=== PATIENT | female | born 2000 | race Caucasian/White ===

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

== ENCOUNTER 2020-03-28 22:26 | Emergency (ER) | payer OTHER ==
[2020-03-28 22:40] VITALS: BP 129/85; PULSE 91; RESP 16; TEMP 98.5
--- NOTE | 2020-03-28 23:04 | ED ---
ENT HPI - General Chief complaint: ENT Stated complaint: Sore throat Time Seen by Provider: 03/28/20 22:39 Source: patient Mode of arrival: ambulatory Limitations: no limitations - History of Present Illness Initial comments: Patient is a 19-year-old female presenting to the emergency Department with complaints of a sore throat that she noticed this morning. She states that feels more irritated than painful. She denies any fever or chills, no ear pain no headaches, no nausea or vomiting. No cough, no chest pain or shortness of breath. Patient states it feels like "there are chunks coming off the back my tongue." She denies being on any medications, no pertinent past medical history, she has no further complaints at this time. Upon arrival to the ER, her vital signs stable. - Related Data Previous Rx's Medication Instructions Recorded Nystatin 100,000 Unit/ml Susp 5 ml PO QID #150 ml 03/28/20 [Mycostatin Oral Susp] Allergies Allergy/AdvReac Type Severity Reaction Status Date / Time No Known Allergies Allergy Verified 03/28/20 22:37 Review of Systems ROS Statement: Those systems with pertinent positive or pertinent negative responses have been documented in the HPI. ROS Other: All systems not noted in ROS Statement are negative. Past Medical History Past Medical History: No Reported History Additional Past Medical History / Comment(s): anemia History of Any Multi-Drug Resistant Organisms: None Reported Past Surgical History: No Surgical Hx Reported Additional Past Surgical History / Comment(s): D&C Past Psychological History: Anxiety Smoking Status: Current every day smoker Past Alcohol Use History: None Reported Past Drug Use History: Marijuana - Past Family History Mother Family Medical History: No Reported History General Exam - General Exam Comments Initial Comments: GENERAL: Patient is well-developed and well-nourished. Patient is nontoxic and in no acute distress. HEAD: Atraumatic, normocephalic. EYES: Pupils equal round and reactive to light, extraocular movements intact, sclera anicteric, conjunctiva are normal. Eyelids were unremarkable. ENT: TMs normal, nares patent. Moist mucous membranes. Patient has white patches on her tongue as well as her oropharynx, soft palate and uvula. It is some mild erythema present, no tonsillar enlargement. Consistent with thrush. NECK: Normal range of motion, supple without lymphadenopathy or JVD. LUNGS: Unlabored respirations. Breath sounds clear to auscultation bilaterally and equal. No wheezes rales or rhonchi. HEART: Regular rate and rhythm without murmurs, rubs or gallops. ABDOMEN: Soft, nontender, normoactive bowel sounds. No guarding, no rebound. No masses appreciated. : Deferred MUSCULOSKELETAL: Normal extremities with adequate strength and normal range of motion, no pitting or edema. No clubbing or cyanosis. NEUROLOGICAL: Patient is alert and oriented x 3. Motor and sensory are also intact. Cranial nerves II through XII grossly intact. Symmetrical smile. Normal speech, normal gait. PSYCH: Normal mood, normal affect. SKIN: Warm, Dry, normal turgor, no rashes or lesions noted. Limitations: no limitations Course Vital Signs 03/28/20 22:37 Temperature 98.5 F Pulse Rate 91 Respiratory 16 Rate Blood Pressure 129/85 O2 Sat by Pulse 97 Oximetry Medical Decision Making - Medical Decision Making Patient is a 19-year-old female presenting with an irritated sore throat she noticed this morning. On exam she does have some white patches in the back of her tongue swells her oropharynx, soft palate, consistent with thrush. Rapid strep is negative. No fevers. Patient will be started on nystatin oral solution, she can also follow up with her PCP if symptoms persist. She is in agreement with this plan of care. She is stable for discharge. - Lab Data Lab Results 03/28/20 Range/Units 22:47 Group A Strep Rapid Negative (Negative) Disposition Clinical Impression: Oral thrush Disposition: HOME SELF-CARE Condition: Stable Instructions (If sedation given, give patient instructions): Oral Candidiasis (ED) Additional Instructions: Please return to the Emergency Department if symptoms worsen or any other concerns. Use medication as prescribed, use for 48 hours after you no longer see patches. Follow up with her PCP. Prescriptions: Nystatin 100,000 Unit/ml Susp [Mycostatin Oral Susp] 5 ml PO QID #150 ml Is patient prescribed a controlled substance at d/c from ED?: No Referrals: Azalea Hubbard MD [Primary Care Provider] - 1-2 days
== END 2020-03-28 23:26 | disposition home or self-care (01) ==
LOC: EC 22:26
DX: B37.0 Candidal stomatitis (principal); F17.200 Nicotine dependence, unspecified, uncomplicated
CPT/HCPCS: 87081; 87430; 99283

== ENCOUNTER 2020-08-01 13:38 | Emergency (ER) | payer OTHER ==
[2020-08-01 13:44] VITALS: BP 110/61; PULSE 76; RESP 18; TEMP 97.8
[2020-08-01] MEDS ORDERED: SODIUM CHLORIDE 0.9% 1,000 ML IV STA (14:11)
[2020-08-01] MEDS ORDERED: ONDANSETRON 4 MG/2 ML VIAL IVP STA (14:11)
--- NOTE | 2020-08-01 14:16 | ED ---
Nausea/Vomiting/Diarrhea HPI - General Chief complaint: Nausea/Vomiting/Diarrhea Stated complaint: Dehydrated/13 weeks preg Time Seen by Provider: 08/01/20 14:02 Source: patient, RN notes reviewed Mode of arrival: ambulatory Limitations: no limitations - History of Present Illness Initial comments: Well-appearing, 19-year-old female presents with her significant other to the emergency room, alert and oriented 4, with complaints of vomiting throughout this . Patient states she is 13 weeks , was seen Dr. Ross was transferred to [facility]. Patient states seen her doctor last week and has been put on Zofran and Reglan but that is not working. Patient states she has vomited 3 times today and once was for me the other 2 times were yellow, and now she is having dry heaves. Patient states she only urinated twice today. Patient states has history of anemia, a D&C in 2019. Only medications she takes is vitamins. Patient states she just wants to make sure everything is okay with the baby. Patient denies abdominal pain or vaginal bleeding. MD complaint: nausea -: week(s) Description of Vomiting: bilious, other (foamy) Associated Abdominal Pain: No Severity scale (1-10): 0 Consistency: intermittent Improves with: none Worsens with: eating - Related Data Previous Rx's Medication Instructions Recorded Nystatin 100,000 Unit/ml Susp 5 ml PO QID #150 ml 03/28/20 [Mycostatin Oral Susp] Allergies Allergy/AdvReac Type Severity Reaction Status Date / Time No Known Allergies Allergy Verified 08/01/20 13:44 Review of Systems ROS Statement: Those systems with pertinent positive or pertinent negative responses have been documented in the HPI. ROS Other: All systems not noted in ROS Statement are negative. Past Medical History Past Medical History: No Reported History Additional Past Medical History / Comment(s): anemia History of Any Multi-Drug Resistant Organisms: None Reported Past Surgical History: No Surgical Hx Reported Additional Past Surgical History / Comment(s): D&C- dec 2019 Past Psychological History: Anxiety Smoking Status: Former smoker Past Alcohol Use History: None Reported Past Drug Use History: None Reported - Past Family History Mother Family Medical History: No Reported History General Exam Limitations: no limitations General appearance: alert, in no apparent distress Head exam: Present: atraumatic, normocephalic, normal inspection Eye exam: Present: normal appearance (glasses), PERRL, EOMI. Absent: scleral icterus, conjunctival injection, periorbital swelling ENT exam: Present: normal exam, normal oropharynx, mucous membranes moist Neck exam: Present: normal inspection, full ROM. Absent: tenderness, meningismus, lymphadenopathy Respiratory exam: Present: normal lung sounds bilaterally. Absent: respiratory distress, wheezes, rales, rhonchi, stridor, decreased breath sounds Cardiovascular Exam: Present: regular rate, normal rhythm, normal heart sounds. Absent: systolic murmur, diastolic murmur, rubs, gallop, clicks GI/Abdominal exam: Present: soft, normal bowel sounds. Absent: distended, tenderness, guarding, rebound, rigid Extremities exam: Present: normal inspection, full ROM, normal capillary refill. Absent: tenderness, pedal edema, joint swelling, calf tenderness Back exam: Present: normal inspection, full ROM. Absent: tenderness, CVA tenderness (R), CVA tenderness (L) Neurological exam: Present: alert, oriented X3, CN II-XII intact Psychiatric exam: Present: normal affect, normal mood Skin exam: Present: warm, dry, intact, normal color. Absent: rash, cyanosis, diaphoretic, petechiae, pallor, mottled Course Vital Signs 08/01/20 13:41 Temperature 97.8 F Pulse Rate 76 Respiratory 18 Rate Blood Pressure 110/61 O2 Sat by Pulse 98 Oximetry Medical Decision Making - Medical Decision Making Patient rehydrated with 1 L of normal saline, no vomiting in the emergency room. heart tones obtained by RN. Patient directed to follow up with her MAMMALOGIST as scheduled states has Zofran at home for nausea and vomiting. Case discussed with Dr. Dudley. Patient denies any vaginal bleeding. Abdomen is soft and nontender. Hemoglobin and hematocrit is 13 and 38 respectively. Other labs are within normal limits. - Lab Data Result diagrams: 08/01/20 14:20 08/01/20 14:20 Lab Results 08/01/20 08/01/20 Range/Units 14:20 14:20 WBC 14.6 H (4.0-11.0) k/uL RBC 4.36 (3.80-5.40) m/uL Hgb 13.0 (11.4-16.0) gm/dL Hct 38.2 (34.0-46.0) % MCV 87.6 (80.0-100.0) fL MCH 29.8 (25.0-35.0) pg MCHC 34.0 (31.0-37.0) g/dL RDW 14.8 (11.5-15.5) % Plt Count 309 (150-450) k/uL MPV 7.9 Neutrophils % 84 % Lymphocytes % 12 % Monocytes % 3 % Eosinophils % 1 % Basophils % 0 % Neutrophils # 12.3 H (1.3-7.7) k/uL Lymphocytes # 1.7 (1.0-4.8) k/uL Monocytes # 0.4 (0-1.0) k/uL Eosinophils # 0.1 (0-0.7) k/uL Basophils # 0.0 (0-0.2) k/uL Sodium 137 (137-145) mmol/L Potassium 4.1 (3.5-5.1) mmol/L Chloride 108 H (98-107) mmol/L Carbon Dioxide 19 L (22-30) mmol/L Anion Gap 10 mmol/L BUN 5 L (7-17) mg/dL Creatinine 0.60 (0.52-1.04) mg/dL Est GFR (CKD-EPI)AfAm >90 (>60 ml/min/1.73 sqM) Est GFR (CKD-EPI)NonAf >90 (>60 ml/min/1.73 sqM) Glucose 88 (74-99) mg/dL Calcium 9.2 (8.4-10.2) mg/dL Total Bilirubin 0.6 (0.2-1.3) mg/dL AST 19 (14-36) U/L ALT 10 (4-34) U/L Alkaline Phosphatase 55 (38-126) U/L Total Protein 6.8 (6.3-8.2) g/dL Albumin 3.8 (3.5-5.0) g/dL Disposition Clinical Impression: Hyperemesis gravidarum Disposition: HOME SELF-CARE Condition: Good Instructions (If sedation given, give patient instructions): Hyperemesis Gravidarum (ED) Additional Instructions: Keep your scheduled appointment with the [facility]AMMALOGIST. Return if any vaginal bleeding or inability keep fluids down. Take Zofran as prescribed previously for nausea and vomiting. Is patient prescribed a controlled substance at d/c from ED?: No Referrals: Azalea Hubbard MD [Primary Care Provider] - 1-2 days Time of Disposition: 15:43
[2020-08-01 14:31] LABS: Basophils % (A) 0 %; Eosinophils # (A) 0.1 k/uL (0-0.7); Eosinophils % (A) 1 %; HCT 38.2 % (34.0-46.0); Lymphocytes # (A) 1.7 k/uL (1.0-4.8); Lymphocytes % (A) 12 %; MCH 29.8 pg (25.0-35.0); MCV 87.6 fL (80.0-100.0); Mean Platelet Volume 7.9; Monocytes # (A) 0.4 k/uL (0-1.0); Monocytes % (A) 3 %; Neutrophils # (A) 12.3 k/uL (1.3-7.7); Neutrophils % (A) 84 %; Platelet Count 309 k/uL (150-450); RBC 4.36 m/uL (3.80-5.40); RDW 14.8 % (11.5-15.5); WBC 14.6 k/uL (4.0-11.0)
[2020-08-01 14:40] LABS: ALT 10 U/L (4-34); AST 19 U/L (14-36); African American GFR (CKD) >90 (>60 ml/min/1.73 sqM); Albumin 3.8 g/dL (3.5-5.0); Alkaline Phosphatase 55 U/L (38-126); Anion Gap 10 mmol/L; Blood Urea Nitrogen 5 mg/dL (7-17); Calcium 9.2 mg/dL (8.4-10.2); Carbon Dioxide 19 mmol/L (22-30); Chloride 108 mmol/L (98-107); Glucose 88 mg/dL (74-99); Non-African American GFR(CKD) >90 (>60 ml/min/1.73 sqM); Potassium 4.1 mmol/L (3.5-5.1); Sodium 137 mmol/L (137-145); Total Bilirubin 0.6 mg/dL (0.2-1.3); Total Protein 6.8 g/dL (6.3-8.2)
== END 2020-08-01 15:45 | disposition home or self-care (01) ==
LOC: EC 13:38
DX: O21.0 Mild hyperemesis gravidarum (principal); Z87.891 Personal history of nicotine dependence; Z3A.13 13 weeks gestation of pregnancy
CPT/HCPCS: 36415; 80053; 85025; 99284; 96374; J2405

== ENCOUNTER → 2020-09-23 | Outpatient (CLI) | payer OTHER ==
--- NOTE | 2020-09-23 15:25 | US ---
EXAMINATION TYPE: US OB anatomy transabd DATE OF EXAM: 09/23/2020 COMPARISON: NONE HISTORY: O36.62XO Large for dates TECHNIQUE: Transpelvic ultrasound was performed. EXAM MEASUREMENTS: GESTATIONAL AGE / DATING Physician Established: (20 weeks/3 days) EDC: 02/07/2021 Dates by LMP: Unknown Dates by First Scan: This is 1st scan here Dates by Current Scan for: (20 weeks/0 days) EDC: 02/10/2021 SURVEY IUP: Single PLACENTA: Posterior PREVIA: No previa ROSEANNE: 11.7 cm Normal CERVICAL LENGTH (transabdominal: norm > 3.0cm): 4.1 cm BIOMETRY PRESENTATION: Vertex LIE: Longitudinal BPD: 4.6 cm 20 weeks / 0 days HC: 16.6 cm 19 weeks / 2 days AC: 14.6 cm 20 weeks / 0 days FL: 3.4 cm 20 weeks / 5 days ESTIMATED WEIGHT IN GRAMS: 333 grams ESTIMATED WEIGHT IN LBS/OZ: 0 lbs. 12 oz. WEIGHT PERCENTAGE BASED ON ESTABLISHED DATE: 29 % HC/AC: 1.13 Normal FL/AC: 23% Normal HEART RATE: 147 bpm RHYTHM: Normal ANATOMY SEEN (within normal limits): * Lateral Vent (< 1 cm) 0.7 cm * Cisterna Magna (< 1.1 cm) 0.5 cm * Nuchal Fold (< 0.6 cm) 0.2 cm * Cerebellum (varies with age) 1.9 cm Choroid Plexus (bilateral) Midline Falx Cavus Septi Pellucidi Four Chamber Heart Outflow tracts: LVOT/RVOT Stomach Situs Nose / Lips Diaphragm Kidneys (bilateral) Bladder Cord Insert Longitudinal Spine Transverse Spine Arms (bilateral) Legs (bilateral) NOT SEEN: Three Vessel Cord-too much artifact on color Viable single IUP measuring 20 weeks 0 days with a heart rate of 147bpm and an estimated delivery alexandre e of 02/10/2021 IMPRESSION: Single live intrauterine measuring 20 weeks and 0 days gestation by sonographic criteria. 3 vessel cord not definitively seen.
== END | disposition home or self-care (01) ==
LOC: RADUSWWP 13:51
PROVIDERS: ATTEND Obstetrics & Gynecology
DX: O36.62X0 Maternal care for excessive fetal growth, second trimester, not applicable or unspecified (principal); Z3A.20 20 weeks gestation of pregnancy
CPT/HCPCS: 76811

== ENCOUNTER 2020-10-14 12:53 | Outpatient (CLI) | payer OTHER ==
[2020-10-14 13:32] VITALS: BP 114/63; PULSE 100; RESP 16; TEMP 97.8
--- NOTE | 2020-11-15 08:25 | P.MSEPDOC ---
Presenting Problems - Arrival Data Date of Arrival on Unit: 10/14/20 Time of Arrival on Unit: 12:53 Mode of Transport: Ambulatory - Complaint OB-Reason for Admission/Chief Complaint: Decreased Movement Medical History - Information : 2 Para: 0 Term: 0 : 0 Abortions: Spontaneous or Elective: 1 Number of Living Children: 0 - Gestational Age Gestational Age by KIRSTEN (wks/days): 23 Weeks and 3 Days Review of Systems - Review of Systems Constitutional: No problems Breast: No problems ENT: No problems Cardiovascular: No problems Respiratory: No problems Gastrointestinal: No problems Genitourinary: No problems Musculoskeletal: No problems Neurological: No problems Skin: No problems Vital Signs - Temperature Temperature: 97.8 F Temperature Source: Temporal Artery Scan - Pulse Right Sitting Pulse Rate: 100 Pulse Assessment Method: Auscultation - Respirations Respiratory Rate: 16 Oxygen Delivery Method: Room Air - Blood Pressure Right Arm Blood Pressure: 114/63 Blood Pressure Mean: 80 Blood Pressure Source: Automatic Cuff Physician Notification - Physician Notified Physician Notified Date: 10/14/20 Physician Notified Time: 13:23 Physician: Heather Hubbard New Order Received: Yes (d/c home) Maternal Triage Index - Non-Urgent/Priority 4 Non-Urgent Priority 4: Yes Criteria Met for Priority 4: decreased movement, 23 3/7 weeks gestation, dopplered FHT 140-150 bpm Disposition - Disposition OB Disposition: Discharge to home Discharge Date: 10/14/20 Discharge Time: 13:25 I agree with the RN Medical Screening Exam: Yes Case reviewed; plan agreed upon as documented in EMR&OBIX.: Yes Diagnosis: DECREASED MOVEMENTS, SECOND TRIMESTER, FETUS 1
== END 2020-10-14 13:25 | disposition home or self-care (01) ==
LOC: FBPOP 12:53
PROVIDERS: ATTEND Obstetrics & Gynecology
DX: O36.8120 Decreased fetal movements, second trimester, not applicable or unspecified (principal); Z3A.23 23 weeks gestation of pregnancy
CPT/HCPCS: 99213

== ENCOUNTER 2020-11-26 18:22 | Outpatient (CLI) | payer OTHER ==
[2020-11-26 20:13] VITALS: BP 121/57; PULSE 86; RESP 18; TEMP 97.5
--- NOTE | 2020-11-28 12:09 | P.MSEPDOC ---
Presenting Problems - Arrival Data Date of Arrival on Unit: 11/26/20 Time of Arrival on Unit: 18:22 Mode of Transport: Ambulatory - Complaint OB-Reason for Admission/Chief Complaint: Decreased Movement Comment: decreased movement for last 3 days Medical History - Information : 2 Para: 0 Term: 0 : 0 Abortions: Spontaneous or Elective: 1 Number of Living Children: 0 - Gestational Age Gestational Age by KIRSTEN (wks/days): 30 Weeks and 3 Days Review of Systems - Review of Systems Constitutional: No problems Breast: No problems ENT: No problems Cardiovascular: No problems Respiratory: No problems Gastrointestinal: No problems Genitourinary: No problems Musculoskeletal: No problems Neurological: No problems Skin: No problems Vital Signs - Temperature Temperature: 97.5 F Temperature Source: Temporal Artery Scan - Pulse Right Brachial Pulse Rate: 86 Pulse Assessment Method: Automatic Cuff - Respirations Respiratory Rate: 18 Oxygen Delivery Method: Room Air - Blood Pressure Right Arm Blood Pressure: 121/57 Blood Pressure Mean: 78 Blood Pressure Source: Automatic Cuff Medical Screen Scoring - Assessment - Baby A Baseline FHR: 140 Heart Rate - NICHD Category: Category I (Normal) NST: Reactive Physician Notification - Physician Notified Physician Notified Date: 11/26/20 Physician Notified Time: 19:10 Physician: Doris Barlow New Order Received: Yes - Notification Comment Comment: reactive nst, no contractions, discharge pt home with review of kick counts and follow up with Dr. Johansen on 12/08 at next scheduled appt Maternal Triage Index - Maternal Triage Index Presenting for scheduled procedure w/no complaint: No - Stat/Priority 1 Stat Priority 1: No - Urgent/Priority 2 Urgent Priority 2: Yes Provider Notified: Doris Barlow Provider Notified Time: 19:10 Criteria Met for Priority 2: decreased movement for last 3 days, 30 3/7 GA Disposition - Disposition OB Disposition: Triage, Discharge to home, Written follow up instructions reviewed Discharge Date: 11/26/20 Discharge Time: 19:15 I agree with the RN Medical Screening Exam: Yes Case reviewed; plan agreed upon as documented in EMR&OBIX.: Yes Diagnosis: DECREASED MOVEMENTS, THIRD TRIMESTER, UNSP
== END 2020-11-26 19:15 | disposition home or self-care (01) ==
LOC: FBPOP 18:22
PROVIDERS: ATTEND Obstetrics & Gynecology
DX: O36.8130 Decreased fetal movements, third trimester, not applicable or unspecified (principal); Z3A.30 30 weeks gestation of pregnancy
CPT/HCPCS: 59025; G0463; 99213

== ENCOUNTER 2020-12-28 15:17 | Emergency (ER) | payer OTHER ==
[2020-12-28 15:47] VITALS: RESP 19; TEMP 98.5
[2020-12-28] MEDS ORDERED: LIDOCAINE 1% INJ 10MG/ML (20 ML MDV) SQ ONE (16:33)
--- NOTE | 2020-12-28 17:34 | ED ---
Skin/Abscess/FB HPI - General Chief complaint: Skin/Abscess/Foreign Body Stated complaint: Possible infection Time Seen by Provider: 12/28/20 16:23 Source: patient, RN notes reviewed Mode of arrival: ambulatory Limitations: no limitations - History of Present Illness Initial comments: Patient is a 20-year-old female presenting to the emergency Department with complaints of a possible abscess on her left upper groin area. Patient is currently 35 weeks . She denies any fevers or chills, no nausea or vomiting. She noticed a little spot about 4 days ago, she did go to her CARD STRIPPER's office yesterday and was started on Keflex. Patient is supposed to go back to her CARD STRIPPER's office in 2 days for a checkup and possibly drainage however patient did not want to wait that long. She denies any abdominal pain, no vaginal bleeding, has been uncomplicated thus far. She has no further complaints. - Related Data Home Medications Medication Instructions Recorded Confirmed Pnv No.95/Ferrous Fum/Folic AC 1 tab PO DAILY 10/14/20 11/26/20 [ Multivitamin Tablet] Allergies Allergy/AdvReac Type Severity Reaction Status Date / Time No Known Allergies Allergy Verified 12/28/20 15:46 Review of Systems ROS Statement: Those systems with pertinent positive or pertinent negative responses have been documented in the HPI. ROS Other: All systems not noted in ROS Statement are negative. Past Medical History Past Medical History: No Reported History Additional Past Medical History / Comment(s): anemia History of Any Multi-Drug Resistant Organisms: None Reported Past Surgical History: No Surgical Hx Reported Additional Past Surgical History / Comment(s): D&C- dec 2019 Past Psychological History: Anxiety Smoking Status: Never smoker - Past Family History Mother Family Medical History: No Reported History General Exam - General Exam Comments Initial Comments: GENERAL: Patient is well-developed and well-nourished. Patient is nontoxic and in no acute distress. HEAD: Atraumatic, normocephalic. EYES: Pupils equal round and reactive to light, extraocular movements intact, sclera anicteric, conjunctiva are normal. Eyelids were unremarkable. ENT: Moist mucous membranes. NECK: Normal range of motion, supple without lymphadenopathy or JVD. LUNGS: Unlabored respirations. Breath sounds clear to auscultation bilaterally and equal. No wheezes rales or rhonchi. HEART: Regular rate and rhythm without murmurs, rubs or gallops. ABDOMEN: Soft, nontender, normoactive bowel sounds. No guarding, no rebound. No masses appreciated. : Deferred MUSCULOSKELETAL: Normal extremities with adequate strength and normal range of motion, no pitting or edema. No clubbing or cyanosis. NEUROLOGICAL: Patient is alert and oriented x 3. SKIN: Warm, Dry, normal turgor, no rashes. Patient has a 1 cm abscess on the left inner upper thigh. There is some mild surrounding induration, fluctuance noted. No surrounding erythema. Limitations: no limitations Course Vital Signs 12/28/20 15:44 Temperature 98.5 F Pulse Rate 89 Respiratory 19 Rate Blood Pressure 112/58 O2 Sat by Pulse 98 Oximetry Procedures - [place] Protocol (Time Out) Procedure Performed:: I&D Performing Provider: Jennifer Srinivasan Respiratory Therapist: Michelle Díaz Timeout Date: 12/28/20 Timeout Time: 17:20 Patient Identification (2 identifiers required): Chart, Verbal, Arm Band Patient/Legal [employer] has Confirmed: Identity, Site, Procedure, Consent Site: Left inner, upper thigh Site Marked: Yes Site Verified With Patient/Guardian: Yes Final Confirmation: Procedure, Site, Confirmed w/Provider - Incision & Drainage Consent Obtained: verbal consent, written consent Indication: Abscess Site: lower extremity (Left upper inner thigh) Size (cm): 1 Anesthetic Used: lidocaine 1% Amount (mLs): 2 I&D Cleaning Method: Alcohol Wipe Scalpel Used: #11 I&D Drainage Obtained: Pus, Blood Patient Tolerated Procedure: well Medical Decision Making - Medical Decision Making Patient is a 20-year-old female, currently 35 weeks , presenting with a small abscess to her left inner thigh. She's had for about 4 days, she did see her CARD STRIPPER's office yesterday, started on Keflex. She has no fever, no nausea or vomiting. There is no surrounding erythema of the abscess. Patient did consent to an I&D, this was performed, lots of purulent drainage was obtained. Patient does feel improvement. Patient will continue with her antibiotics and follow up with her CARD STRIPPER's office in 2 days. She is agreeable to this and is stable for discharge. Disposition Clinical Impression: Abscess of left thigh Disposition: HOME SELF-CARE Condition: Stable Instructions (If sedation given, give patient instructions): Abscess Incision and Drainage (ED) Additional Instructions: Please return to the Emergency Department if symptoms worsen or any other concerns. Continue with the already prescribed antibiotics. Apply warm compresses to the left leg to help with drainage. Please follow-up with your CARD STRIPPER in 2 days as discussed. Is patient prescribed a controlled substance at d/c from ED?: No Referrals: Azalea Hubbard MD [Primary Care Provider] - 1-2 days Time of Disposition: 17:34
[2020-12-28 17:44] VITALS: BP 126/76; PULSE 88
== END 2020-12-28 17:47 | disposition home or self-care (01) ==
LOC: EC 15:17
DX: O99.713 Diseases of the skin and subcutaneous tissue complicating pregnancy, third trimester (principal); L02.416 Cutaneous abscess of left lower limb; Z3A.35 35 weeks gestation of pregnancy
CPT/HCPCS: 10060; 99283; J2001

== ENCOUNTER 2021-01-09 19:53 | Outpatient (CLI) | payer OTHER ==
[2021-01-09 20:35] LABS: Basophils % (A) 0 %; Eosinophils # (A) 0.1 k/uL (0-0.7); Eosinophils % (A) 1 %; HGB 9.3 gm/dL (11.4-16.0); Hypochromasia Slight; Lymphocytes % (A) 19 %; MCH 28.6 pg (25.0-35.0); MCHC 32.1 g/dL (31.0-37.0); Mean Platelet Volume 8.5; Monocytes # (A) 0.6 k/uL (0-1.0); Monocytes % (A) 6 %; Neutrophils # (A) 7.5 k/uL (1.3-7.7); Neutrophils % (A) 71 %; Platelet Count 347 k/uL (150-450); RBC 3.25 m/uL (3.80-5.40); RDW 15.1 % (11.5-15.5); WBC 10.5 k/uL (4.0-11.0)
[2021-01-09 20:50] LABS: INR 2.4 (<1.2); Partial Thromboplastin Time 34.3 sec (22.0-30.0)
[2021-01-09 20:54] LABS: Appearance,Urine Clear (Clear); Bacteria,Urine Occasional /hpf; Bilirubin,Urine Negative (Negative); Blood,Urine Negative (Negative); Calcium Oxalate Crystals,Urine Occasional /hpf; Color,Urine Yellow; Glucose,Urine (UA) Negative (Negative); Ketones,Urine Negative (Negative); Leukocyte Esterase,Urine Small (Negative); Mucus,Urine Occasional /hpf; Nitrite,Urine Negative (Negative); Protein,Urine Trace (Negative); RBC,Urine 1 /hpf (0-5); Specific Gravity,Urine 1.021 (1.001-1.035); Squamous Epithelial Cell,Urine 4 /hpf (0-4); Urobilinogen,Urine <2.0 mg/dL (<2.0); WBC,Urine 10 /hpf (0-5)
[2021-01-09 21:09] LABS: ALT 10 U/L (4-34); AST 22 U/L (14-36); African American GFR (CKD) >90 (>60 ml/min/1.73 sqM); Blood Urea Nitrogen 9 mg/dL (7-17); LDH 790 U/L (313-618); Magnesium 1.7 mg/dL (1.6-2.3); Non-African American GFR(CKD) >90 (>60 ml/min/1.73 sqM); Uric Acid 6.4 mg/dL (3.7-7.4)
[2021-01-09 21:10] LABS: Creatinine,Urine Random 159.9 mg/dL; Protein/Creatinine Ratio,Urine 0.075
[2021-01-09 21:14] LABS: Creatinine,Urine Random 163.3 mg/dL
[2021-01-09 22:34] LABS: INR 0.9 (<1.2); Partial Thromboplastin Time 21.7 sec (22.0-30.0); Prothrombin Time 9.8 sec (9.0-12.0)
[2021-01-09 23:27] VITALS: BP 112/62; PULSE 90; RESP 16; TEMP 97.8
--- NOTE | 2021-01-10 06:12 | P.MSEPDOC ---
Presenting Problems - Arrival Data Date of Arrival on Unit: 01/09/21 Time of Arrival on Unit: 20:00 Mode of Transport: Ambulatory - Complaint OB-Reason for Admission/Chief Complaint: PIH Comment: Patient presents to triage with report of wollen feet, right sided abdominal. pain, heart burm, and reports seeing stars at times especially when bending over. Patient also states that she has been itching all over her body for several days. Medical History - Information : 2 Para: 0 Term: 0 : 0 Abortions: Spontaneous or Elective: 1 Number of Living Children: 0 - Gestational Age Gestational Age by KIRSTEN (wks/days): 34 Weeks and 3 Days Review of Systems - Review of Systems Constitutional: No problems Breast: No problems ENT: No problems Cardiovascular: No problems Respiratory: No problems Gastrointestinal: No problems Genitourinary: No problems Musculoskeletal: No problems Neurological: No problems Skin: No problems Vital Signs - Temperature Temperature: 97.8 F Temperature Source: Temporal Artery Scan - Pulse Right Pulse Rate: 90 Pulse Assessment Method: Automatic Cuff - Respirations Respiratory Rate: 16 Oxygen Delivery Method: Room Air O2 Sat by Pulse Oximetry: 100 - Blood Pressure Right Arm Blood Pressure: 112/62 Blood Pressure Mean: 78 Blood Pressure Source: Automatic Cuff Medical Screen Scoring - Assessment - Baby A Baseline FHR: 120 Heart Rate - NICHD Category: Category I (Normal) Physician Notification - Physician Notified Physician Notified Date: 01/09/21 Physician Notified Time: 20:00 Physician: Reed Rivas - Notification Comment Comment: Dr. Rivas requested [facility] labs to be drawn upon admission to triagel. blood pressures remain WNL. Labs reviewed at 2100 when resulted. Maternal Triage Index - Maternal Triage Index Presenting for scheduled procedure w/no complaint: No - Stat/Priority 1 Stat Priority 1: No - Urgent/Priority 2 Urgent Priority 2: No - Prompt/Priority 3 Prompt Priority 3: Yes Criteria Met for Priority 3: Patient presents to triage with report of wollen feet, right sided abdominal. pain, heart burm, and reports seeing stars at times especially when bending over. Disposition - Disposition OB Disposition: Discharge to home Discharge Date: 01/09/21 Discharge Time: 23:01 I agree with the RN Medical Screening Exam: Yes Case reviewed; plan agreed upon as documented in EMR&OBIX.: Yes Diagnosis: RELATED CONDITIONS, UNSPECIFIED, THIRD TRIMESTER (Patient presents to labor and delivery with various complaints and concern for preeclampsia and cholestasis of . Preeclampsia lab work was normal, however her initial coagulation factors were abnormal however this was found to be a lab error on redraw. I did send bile acids due to the patient's complaints of itching and the patient understands this will take 5-7 days to return. Patient will follow up with Dr. Hubbard tomorrow morning.)
== END 2021-01-09 23:00 ==
LOC: FBPOP 19:53
PROVIDERS: ATTEND Obstetrics & Gynecology
DX: O26.893 Other specified pregnancy related conditions, third trimester (principal); R10.9 Unspecified abdominal pain; R12 Heartburn; Z3A.34 34 weeks gestation of pregnancy
CPT/HCPCS: 59025; 82239; 82570; 84156; 82565; 83615; 83735; 84450; 84460; 84520; 84550; 85025; 85384; 85610; 85730; 81001; G0463; 99213

== ENCOUNTER 2021-01-31 16:34 | Outpatient (CLI) | payer OTHER ==
[2021-01-31 18:17] VITALS: BP 132/76; PULSE 100; RESP 18; TEMP 96.8
--- NOTE | 2021-02-09 07:21 | P.MSEPDOC ---
Presenting Problems - Arrival Data Date of Arrival on Unit: 01/31/21 Time of Arrival on Unit: 16:30 Mode of Transport: Ambulatory - Complaint OB-Reason for Admission/Chief Complaint: Possible Onset of Labor Comment: Contractions and ?SROM Medical History - Information : 1 Para: 0 Term: 0 : 0 Abortions: Spontaneous or Elective: 0 Number of Living Children: 0 - Gestational Age Gestational Age by KIRSTEN (wks/days): 39 Weeks and 0 Days Review of Systems - Review of Systems Constitutional: No problems Breast: No problems ENT: No problems Cardiovascular: No problems Respiratory: No problems Gastrointestinal: No problems Genitourinary: No problems Musculoskeletal: No problems Neurological: No problems Skin: No problems Vital Signs - Temperature Temperature: 96.8 F Temperature Source: Temporal Artery Scan - Pulse Right Sitting Brachial Pulse Rate: 100 Pulse Assessment Method: Automatic Cuff - Respirations Respiratory Rate: 18 Oxygen Delivery Method: Room Air O2 Sat by Pulse Oximetry: 99 - Blood Pressure Right Arm Sitting Blood Pressure: 132/76 Blood Pressure Mean: 94 Blood Pressure Source: Automatic Cuff Medical Screen Scoring - Cervical Exam Dilation (cm): 1 - Assessment - Baby A Baseline FHR: 140 Heart Rate - NICHD Category: Category I (Normal) NST: Reactive Physician Notification - Physician Notified Physician Notified Date: 01/31/21 Physician Notified Time: 17:05 Physician: Reed Rivas New Order Received: Yes - Notification Comment Comment: Dc home. Pt to return with continued or increased symtoms. Follow up with Dr Hubbard in the office as scheduled. Maternal Triage Index - Maternal Triage Index Presenting for scheduled procedure w/no complaint: No - Stat/Priority 1 Stat Priority 1: No - Urgent/Priority 2 Urgent Priority 2: No - Prompt/Priority 3 Prompt Priority 3: No - Non-Urgent/Priority 4 Non-Urgent Priority 4: Yes Criteria Met for Priority 4: amnisure neg, cx /- Disposition - Disposition OB Disposition: Discharge to home Discharge Date: 01/31/21 Discharge Time: 17:11 I agree with the RN Medical Screening Exam: Yes Case reviewed; plan agreed upon as documented in EMR&OBIX.: Yes Diagnosis: FALSE LABOR AT OR AFTER 37 COMPLETED WEEKS OF GESTATION
== END 2021-01-31 17:12 | disposition home or self-care (01) ==
LOC: FBPOP 16:34
PROVIDERS: ATTEND Obstetrics & Gynecology
DX: O47.1 False labor at or after 37 completed weeks of gestation (principal); Z3A.39 39 weeks gestation of pregnancy
CPT/HCPCS: 59025; G0463; 99213

== ENCOUNTER 2021-02-03 05:56 | Inpatient (IN) | payer OTHER ==
[2021-02-03] MEDS ORDERED: METHYLERGONOVINE 0.2 MG/ML 1 ML AMP IM PRN (06:06)
[2021-02-03] MEDS ORDERED: CARBOPROST TROMETHAMINE 250 MCG/ML 1 ML AMP IM PRN (06:06)
[2021-02-03] MEDS ORDERED: TERBUTALINE 1 MG/ML VIAL SQ PRN (06:06)
[2021-02-03] MEDS ORDERED: LIDOCAINE 0.5% (PF) 5 MG/ML (50 ML SDV) SQ PRN (06:06)
[2021-02-03] MEDS ORDERED: OXYTOCIN 10 UNIT/ML 1 ML VIAL IM PRN (06:06)
[2021-02-03] MEDS ORDERED: LACTATED RINGERS 1,000 ML IV SCH (06:15)
[2021-02-03] MEDS ORDERED: OXYTOCIN 30 UNITS/500 ML NS 30 UNIT in SALINE 1 500ML.BAG IV SCH ×2 (06:15→13:30)
[2021-02-03] MEDS: LACTATED RINGERS 1,000 ML IV SCH ×2 (06:18→09:19)
[2021-02-03 06:37] LABS: Anisocytosis Slight; Basophils % (A) 0 %; Eosinophils # (A) 0.1 k/uL (0-0.7); Eosinophils % (A) 1 %; HCT 32.2 % (34.0-46.0); HGB 10.4 gm/dL (11.4-16.0); Hypochromasia Slight; Lymphocytes # (A) 2.4 k/uL (1.0-4.8); Lymphocytes % (A) 17 %; MCH 27.9 pg (25.0-35.0); MCHC 32.3 g/dL (31.0-37.0); MCV 86.3 fL (80.0-100.0); Mean Platelet Volume 9.4; Monocytes # (A) 0.6 k/uL (0-1.0); Monocytes % (A) 4 %; Neutrophils # (A) 10.9 k/uL (1.3-7.7); Neutrophils % (A) 76 %; Platelet Count 345 k/uL (150-450); RBC 3.73 m/uL (3.80-5.40); RDW 16.7 % (11.5-15.5); WBC 14.3 k/uL (4.0-11.0)
[2021-02-03] MEDS ORDERED: BUTORPHANOL 1 MG/ML 1 ML VIAL IV PRN (07:39)
[2021-02-03] MEDS ORDERED: fentaNYL (PF) 50 MCG/ML 5 ML AMP ONE (08:50)
[2021-02-03] MEDS ORDERED: ROPIVACAINE 5MG/ML 20ML VIAL ONE (08:50)
[2021-02-03] MEDS ORDERED: SODIUM CHLORIDE 0.9% 100 ML BAG ONE (08:50)
[2021-02-03] MEDS ORDERED: IBUPROFEN ORAL SUSP 100 MG/5 ML CUP PO PRN (13:24)
[2021-02-03] MEDS ORDERED: ZOLPIDEM 5 MG TAB PO PRN (13:24)
[2021-02-03] MEDS ORDERED: LANOLIN CREAM 5 GM TUBE TOPICAL PRN (13:24)
[2021-02-03] MEDS ORDERED: HYDROCORTISONE 2.5% RECTAL CREAM 30 GM TUBE RECTAL PRN (13:24)
[2021-02-03] MEDS ORDERED: BENZOCAINE/MENTHOL SPRAY 1 GM/SPRAY AEROSOL TOPICAL PRN (13:24)
[2021-02-03] MEDS ORDERED: diphenhydrAMINE 50 MG/ML 1 ML VIAL IVP PRN ×2 (13:24)
[2021-02-03] MEDS ORDERED: diphenhydrAMINE 50 MG CAP PO PRN (13:24)
[2021-02-03] MEDS ORDERED: diphenhydrAMINE 25 MG CAP PO PRN (13:24)
[2021-02-03] MEDS ORDERED: SIMETHICONE 80 MG CHEWABLE PO PRN (13:24)
[2021-02-03] MEDS: IBUPROFEN 600 MG TAB PO PRN ×2 (14:04→21:14)
[2021-02-03] MEDS ORDERED: MEASLES-MUMPS-RUBELLA VACC/PF 12,500 UNIT/0.5 ML VIAL SQ ONE (14:55)
[2021-02-03] MEDS: SENNOSIDES-DOCUSATE SODIUM 1 EACH TAB PO SCH (21:14)
[2021-02-04] MEDS: IBUPROFEN 600 MG TAB PO PRN ×2 (03:24→09:26)
--- NOTE | 2021-02-04 07:37 | P.HPOB ---
History of Present Illness H&P Date: 02/03/21 Chief Complaint: induction of labor 20-year-old G 2 P0 presents at 39 weeks and 3 days for induction of labor. Her cervix is 3 cm dilated, 70% effaced, and -2 station. She is rico every 3-5 minutes. heart tones 140 with moderate variability and reactive. Review of Systems All systems: negative Constitutional: Denies chills, Denies fever Eyes: denies blurred vision, denies pain Ears, nose, mouth and throat: Denies headache, Denies sore throat Cardiovascular: Denies chest pain, Denies shortness of breath Respiratory: Denies cough Gastrointestinal: Denies abdominal pain, Denies diarrhea, Denies nausea, Denies vomiting Genitourinary: Denies dysuria, Denies hematuria Musculoskeletal: Denies myalgias Integumentary: Denies pruritus, Denies rash Neurological: Denies numbness, Denies weakness Psychiatric: Denies anxiety, Denies depression Endocrine: Denies fatigue, Denies weight change Past Medical History Past Medical History: No Reported History Additional Past Medical History / Comment(s): anemia. Obstetric history: Blood type is B+, antibodies negative, rubella nonimmune, hepatitis B negative, HIV negative, RPR nonreactive, GBS negative. History of Any Multi-Drug Resistant Organisms: None Reported Past Surgical History: No Surgical Hx Reported Additional Past Surgical History / Comment(s): D&C- dec 2019 Past Anesthesia/Blood Transfusion Reactions: No Reported Reaction Past Psychological History: Anxiety Smoking Status: Never smoker Past Alcohol Use History: None Reported Past Drug Use History: None Reported - Past Family History Mother Family Medical History: No Reported History Medications and Allergies Home Medications Medication Instructions Recorded Confirmed Type No Known Home Medications 01/31/21 02/03/21 History Allergies Allergy/AdvReac Type Severity Reaction Status Date / Time No Known Allergies Allergy Verified 02/03/21 06:01 Exam Osteopathic Statement: *. No significant issues noted on an osteopathic structural exam other than those noted in the History and Physical/Consult. Vital Signs Temp Pulse Resp BP Pulse Ox 02/04/21 00:00 98.4 F 104 H 17 113/74 98 02/03/21 20:00 98.3 F 102 H 17 135/81 98 02/03/21 15:30 98.1 F 89 18 125/63 02/03/21 15:00 98.1 F 103 H 18 138/68 02/03/21 14:30 98.5 F 105 H 18 138/73 02/03/21 14:15 98.7 F 100 18 135/65 02/03/21 14:00 98.1 F 101 H 18 136/62 02/03/21 13:45 97.8 F 100 18 128/65 02/03/21 13:30 97.9 F 102 H 18 127/60 Intake and Output 02/03/21 02/04/21 02/04/21 22:59 06:59 14:59 Other: # Voids 1 1 Heart: Regular rate and rhythm Lungs: Clear to auscultation bilaterally Abdomen: Soft, nontender Extremities: Negative Homans sign Results Result Diagrams: 02/03/21 06:14 Assessment and Plan (1) Encounter for induction of labor Current Visit: Yes Status: Acute Code(s): Z34.90 - ENCNTR FOR SUPRVSN OF NORMAL , UNSP, UNSP TRIMESTER SNOMED Code(s): 598578813 Plan: 1. Induction of labor with amniotomy and Pitocin 2. Anticipate normal vaginal delivery
--- NOTE | 2021-02-04 07:39 | P.PROBDLV ---
Vaginal Delivery Note - . Vaginal Delivery Note: 20-year-old G 2 P0 presents at 39 weeks and 3 days for induction of labor. Her cervix is 3 cm dilated, 70% effaced, and -2 station. She is rico every 3-5 minutes. heart tones 140 with moderate variability and reactive. Pitocin was started. Amniotomy performed at 6:53 AM and clear fluid noted. When patient was very uncomfortable she did get an epidural. Her cervix is completely dilated at 12:30 PM. She pushed, delivered a viable female over intact perineum under epidural anesthesia at 1309. Head delivered OA, anterior shoulder delivered gentle downward guidance followed by posterior shoulder and rest of body. Nose and mouth bulb suctioned, cord clamped and cut, infant placed on mother's abdomen. Apgars 7, 9, weight 8 lbs. 4 oz. Placenta delivered spontaneously, intact with three-vessel cord at 1311. Vagina, cervix, perineum inspected. First-degree midline laceration was repaired with 3-0 Vicryl. Estimated blood loss 200 mL. Mother and baby in stable condition.
--- NOTE | 2021-02-04 07:40 | P.DS ---
Providers Date of admission: 02/03/21 05:56 Expected date of discharge: 02/04/21 Attending physician: Heather Hubbard Primary care physician: Stated None - Discharge Diagnosis(es) (1) Encounter for induction of labor Current Visit: Yes Status: Resolved (2) Status post normal vaginal delivery Current Visit: Yes Status: Acute Hospital Course: Patient presented for induction of labor. She underwent normal vaginal delivery. course was uncomplicated. She denies nausea, vomiting, chest pain, shortness of breath or any calf pain. Patient will be discharged home day #1 in stable condition to follow-up with me in 6 weeks. Plan - Discharge Summary New Discharge Prescriptions: New Ibuprofen [Motrin] 600 mg PO Q6HR PRN #30 tab PRN Reason: Mild Pain (Scale 1 To 3) Discharge Medication List Ibuprofen [Motrin] 600 mg PO Q6HR PRN #30 tab 02/04/21 [Rx] Follow up Appointment(s)/Referral(s): Heather Hubbard DO [Doctor of Osteopathic Medicine] - 03/15/21 3:45 pm Discharge Disposition: HOME SELF-CARE
[2021-02-04] MEDS: SENNOSIDES-DOCUSATE SODIUM 1 EACH TAB PO SCH (07:56)
[2021-02-04 08:51] VITALS: BP 122/71; PULSE 80; RESP 18; TEMP 97.6
[2021-02-04 10:58] LABS: Anisocytosis Slight; Basophils % (A) 0 %; Eosinophils # (A) 0.1 k/uL (0-0.7); Eosinophils % (A) 1 %; HCT 26.3 % (34.0-46.0); Lymphocytes # (A) 2.2 k/uL (1.0-4.8); Lymphocytes % (A) 17 %; MCH 28.5 pg (25.0-35.0); MCHC 33.4 g/dL (31.0-37.0); MCV 85.3 fL (80.0-100.0); Mean Platelet Volume 10.4; Monocytes # (A) 0.7 k/uL (0-1.0); Monocytes % (A) 5 %; Neutrophils # (A) 9.7 k/uL (1.3-7.7); Neutrophils % (A) 74 %; Platelet Count 271 k/uL (150-450); RBC 3.08 m/uL (3.80-5.40); RDW 17.5 % (11.5-15.5)
[2021-02-04 10:59] LABS: HGB 8.8 gm/dL (11.4-16.0)
== END 2021-02-04 14:20 | disposition home or self-care (01) | DRG 807 ==
LOC: 4FBP 05:56
PROVIDERS: ADMIT Obstetrics & Gynecology; ATTEND Obstetrics & Gynecology
PROC: 10E0XZZ Delivery of Products of Conception, External Approach (ICD-10-PCS; principal; 2021-02-03)
PROC: 10907ZC Drainage of Amniotic Fluid, Therapeutic from Products of Conception, Via Natural or Artificial Opening (ICD-10-PCS; 2021-02-03)
PROC: 0HQ9XZZ Repair Perineum Skin, External Approach (ICD-10-PCS; 2021-02-03)
PROC: 3E033VJ Introduction of Other Hormone into Peripheral Vein, Percutaneous Approach (ICD-10-PCS; 2021-02-03)
DX: O70.0 First degree perineal laceration during delivery (principal); Z37.0 Single live birth; F41.9 Anxiety disorder, unspecified; O99.02 Anemia complicating childbirth; D64.9 Anemia, unspecified; O99.344 Other mental disorders complicating childbirth; Z3A.39 39 weeks gestation of pregnancy
CPT/HCPCS: 85025; 86850; 86900; 86901

== ENCOUNTER 2023-04-13 11:39 | Emergency (ER) | payer OTHER ==
--- NOTE | 2023-04-13 12:13 | ED ---
ENT HPI - General Source: patient, RN notes reviewed <Michelle Garcia - Last Filed: 04/13/23 12:12> - General Source: patient, RN notes reviewed Mode of arrival: ambulatory Limitations: no limitations <Jessica Johnson - Last Filed: 04/13/23 16:40> - General Chief complaint: ENT Stated complaint: Lump on neck Time Seen by Provider: 04/13/23 12:12 - History of Present Illness Initial comments: Patient is a 22-year-old female presented ER with chief complaint of a lump on her neck. Patient states it appeared a couple of days ago. Patient also states she has not been feeling well for the past few years. Patient denies any fevers, chills, night sweats. (Michelle Garcia) This is a 28-year-old female who presents to the emergency department for concerns of a lump on her neck. States that she started to notice a lump or mas s underneath her chin couple of days ago. This is only painful if she manipulates or presses on the area excessively. This has not turned red or enlarged. Denies any history of similar symptoms in the past. She does not have a sore throat or difficulty swallowing. Denies any upper respiratory s ymptoms, fevers, or chills. Additionally, notes that she has had problems with intermittent illness over the last 6 years. She has had intermittent episodes of chest pain and headaches. She did follow up with a tax representative who did an echocardiogram and stress test, and no acute irregularities were found. (Jessica Johnson) - Related Data Previous Rx's Medication Instructions Recorded Ibuprofen [Motrin] 600 mg PO Q6HR PRN #30 tab 02/04/21 Amoxicillin 875 mg PO Q12HR 7 Days #14 tablet 04/13/23 methocarbamoL [Robaxin-750] 1,500 mg PO TID PRN #30 tab 04/13/23 Allergies Allergy/AdvReac Type Severity Reaction Status Date / Time No Known Allergies Allergy Verified 04/13/23 12:15 Review of Systems ROS Other: All systems not noted in ROS Statement are negative. <Michelle Garcia - Last Filed: 04/13/23 12:12> ROS Other: All systems not noted in ROS Statement are negative. <Jessica Johnson - Last Filed: 04/13/23 16:40> ROS Statement: Those systems with pertinent positive or pertinent negative responses have been documented in the HPI. Past Medical History Past Medical History: No Reported History Additional Past Medical History / Comment(s): anemia. Obstetric history: Blood type is B+, antibodies negative, rubella nonimmune, hepatitis B negative, HIV negative, RPR nonreactive, GBS negative. History of Any Multi-Drug Resistant Organisms: None Reported Past Surgical History: No Surgical Hx Reported Additional Past Surgical History / Comment(s): D&C- dec 2019 Past Anesthesia/Blood Transfusion Reactions: No Reported Reaction Past Psychological History: Anxiety Smoking Status: Never smoker Past Alcohol Use History: None Reported Past Drug Use History: None Reported - Past Family History Mother Family Medical History: No Reported History <Michelle Garcia - Last Filed: 04/13/23 12:12> General Exam <Michelle Garcia - Last Filed: 04/13/23 12:12> Limitations: no limitations General appearance: alert, in no apparent distress Head exam: Present: atraumatic, normocephalic, normal inspection ENT exam: Present: other (Small palpable lump to the submental region. This is non tender with no overlying skin changes.) Respiratory exam: Present: normal lung sounds bilaterally. Absent: respiratory distress, wheezes, rales, rhonchi, stridor Cardiovascular Exam: Present: regular rate, normal rhythm, normal heart sounds. Absent: systolic murmur, diastolic murmur, rubs, gallop, clicks Neurological exam: Present: alert, oriented X3, CN II-XII intact Psychiatric exam: Present: normal affect, normal mood Skin exam: Present: warm, dry, intact, normal color. Absent: rash <Jessica Johnson - Last Filed: 04/13/23 16:40> - General Exam Comments Initial Comments: Visual Physical Exam Vital signs reviewed General: Well-appearing, nontoxic, no acute distress. Head: Normocephalic, atraumatic Eyes: PERRLA, EOMI ENT: Airway patent Chest: Nonlabored breathing Skin: No visual rash, normal skin tone, bump noted on the right anterior neck Neuro: Alert and oriented 3 Musculoskeletal: No gross abnormalities (Michelle Garcia) Course Vital Signs 04/13/23 04/13/23 04/13/23 12:07 14:49 15:48 Temperature 98.1 F 98.1 F 97.8 F Pulse Rate 95 66 75 Respiratory 20 16 18 Rate Blood Pressure 108/70 100/74 108/88 O2 Sat by Pulse 98 100 99 Oximetry Medical Decision Making <Michelle Garcia - Last Filed: 04/13/23 12:12> - Lab Data Result diagrams: 04/13/23 12:38 04/13/23 12:38 - Radiology Data Radiology results: report reviewed, image reviewed <Jessica Johnson - Last Filed: 04/13/23 16:40> - Medical Decision Making I performed the quick note portion of the exam. Electronically signed by Michelle Garcia PA-C (Michelle Garcia) This is a 22-year-old female who presents to the emergency department for a lump on her neck. Was pt. sent in by a medical professional or institution? @ -No Did you speak to anyone other than the patient for history? @ -No Did you review nursing and triage notes? @ -Yes, and I agree, it is accurate with regards to the patient's symptoms. Were old charts reviewed? @ -No Differential Diagnosis? @ -Differential Neck Lump: Abscess, adenopathy, lymphoma, hematoma, this is not meant to be an all- inclusive list. EKG interpreted by me (3pts min.)? @ -Not obtained X-rays interpreted by me (1pt min.)? @ -Not obtained CT interpreted by me (1pt min.)? @ -Not obtained U/S interpreted by me (1pt. min.)? @ -US of the neck obtained. My interpretation identifies a submandibular lymph node. What testing was considered but not performed? (CT, X-rays, U/S, labs)? Why? @ -None What meds were considered but not given? Why? @ -None Did you discuss the management of the patient with other professionals? @ -No Did you reconcile home meds? @ -No Was smoking cessation discussed for >3mins.? @ -No Was critical care preformed (if so, how long)? @ -No Were there social determinants of health that impacted care today? How? (Homelessness, low income, unemployed, alcoholism, drug addiction, transportation, low edu. Level, literacy, decrease access to med. care, half-way, rehab)? @ -No Was there de-escalation of care discussed even if they declined? (Discuss DNR or withdrawal of care, Hospice)? @ -No What co-morbidities impacted this encounter? (DM, HTN, Smoking, COPD, CAD, Cancer, CVA, Hep., AIDS, mental health diagnosis, sleep apnea, morbid obesity)? @ -None Was patient admitted / discharged? @ -Discharged. Lab work obtained and found to be unremarkable. Rapid strep test negative. Covid, influenza, RSV testing were negative. Heterophile negative. Ultrasound of the lump on the patient's neck was obtained. Findings consistent with a submandibular lymph node. Discussed with the patient the option of antibiotic management, and she requested to proceed. Rx for amoxicillin provided with dosing instructions reviewed. She was also given a prescription for Robaxin to try taking for the episodes of back spasms she devel ops. Advised to discuss her other long-term/chronic concerns with her primary care provider for further evaluation. Undiagnosed new problem with uncertain prognosis? @ -None Drug Therapy requiring intensive monitoring for toxicity (Heparin, Nitro, Insulin, Cardizem)? @ -None Were any procedures done? @ -None Diagnosis/symptom? @ -Submandibular lymphadenopathy Acute, or Chronic, or Acute on Chronic? @ -Acute Uncomplicated (without systemic symptoms) or Complicated (systemic symptoms)? @ -Uncomplicated Side effects of treatment? @ -None Exacerbation, Progression, or Severe Exacerbation] @ -Not applicable Poses a threat to life or bodily function? @ -No Return precautions reviewed in depth, the patient is instructed to return to the emergency department with any new, worsening, or concerning symptoms. Patient verbalized understanding. This case was discussed in detail with the attending ED physician, Dr. Brantley. Presentation, findings, and treatment plan discussed in detail as well. (Jessica Johnson) - Lab Data Lab Results 04/13/23 04/13/23 04/13/23 Range/Units 12:38 12:38 12:38 WBC 9.0 (3.8-10.6) k/uL RBC 4.34 (3.80-5.40) m/uL Hgb 13.9 (11.4-16.0) gm/dL Hct 40.5 (34.0-46.0) % MCV 93.3 (80.0-100.0) fL MCH 32.0 (25.0-35.0) pg MCHC 34.3 (31.0-37.0) g/dL RDW 12.5 (11.5-15.5) % Plt Count 272 (150-450) k/uL MPV 7.7 Sodium 139 (137-145) mmol/L Potassium 4.7 (3.5-5.1) mmol/L Chloride 103 (98-107) mmol/L Carbon Dioxide 23 (22-30) mmol/L Anion Gap 13 mmol/L BUN 17 (7-17) mg/dL Creatinine 0.78 (0.52-1.04) mg/dL Est GFR (CKD-EPI)AfAm >90 (>60 ml/min/1.73 sqM) Est GFR (CKD-EPI)NonAf >90 (>60 ml/min/1.73 sqM) Glucose 107 H (74-99) mg/dL Calcium 9.4 (8.4-10.2) mg/dL Total Bilirubin 1.9 H (0.2-1.3) mg/dL AST 49 H (14-36) U/L ALT 30 (4-34) U/L Alkaline Phosphatase 44 (38-126) U/L Total Protein 8.4 H (6.3-8.2) g/dL Albumin 4.8 (3.5-5.0) g/dL TSH 0.753 (0.465-4.680) mIU/L Urine Color Urine Appearance (Clear) Urine pH (5.0-8.0) Ur Specific [place] (1.001-1.035) Urine Protein (Negative) Urine Glucose (UA) (Negative) Urine Ketones (Negative) Urine Blood (Negative) Urine Nitrite (Negative) Urine Bilirubin (Negative) Urine Urobilinogen (<2.0) mg/dL Ur Leukocyte Esterase (Negative) Urine RBC (0-5) /hpf Urine WBC (0-5) /hpf Ur Squamous Epith Cells (0-4) /hpf Urine Mucus (None) /hpf Urine Yeast (Budding) (None) /hpf Urine HCG, Qual (Not Detectd) Heterophile Antibody (Negative) Influenza Type A (PCR) (Not Detectd) Influenza Type B (PCR) (Not Detectd) RSV (PCR) (Not Detectd) SARS-CoV-2 (PCR) (Not Detectd) Group A Strep (PCR) NOT DETECTED (Not Detectd) 04/13/23 04/13/23 04/13/23 Range/Units 12:38 12:38 12:38 WBC (3.8-10.6) k/uL RBC (3.80-5.40) m/uL Hgb (11.4-16.0) gm/dL Hct (34.0-46.0) % MCV (80.0-100.0) fL MCH (25.0-35.0) pg MCHC (31.0-37.0) g/dL RDW (11.5-15.5) % Plt Count (150-450) k/uL MPV Sodium (137-145) mmol/L Potassium (3.5-5.1) mmol/L Chloride (98-107) mmol/L Carbon Dioxide (22-30) mmol/L Anion Gap mmol/L BUN (7-17) mg/dL Creatinine (0.52-1.04) mg/dL Est GFR (CKD-EPI)AfAm (>60 ml/min/1.73 sqM) Est GFR (CKD-EPI)NonAf (>60 ml/min/1.73 sqM) Glucose (74-99) mg/dL Calcium (8.4-10.2) mg/dL Total Bilirubin (0.2-1.3) mg/dL AST (14-36) U/L ALT (4-34) U/L Alkaline Phosphatase (38-126) U/L Total Protein (6.3-8.2) g/dL Albumin (3.5-5.0) g/dL TSH (0.465-4.680) mIU/L Urine Color Yellow Urine Appearance Cloudy H (Clear) Urine pH 6.5 (5.0-8.0) Ur Specific [place] 1.025 (1.001-1.035) Urine Protein Trace H (Negative) Urine Glucose (UA) Negative (Negative) Urine Ketones Negative (Negative) Urine Blood Negative (Negative) Urine Nitrite Negative (Negative) Urine Bilirubin Negative (Negative) Urine Urobilinogen 2.0 (<2.0) mg/dL Ur Leukocyte Esterase Small H (Negative) Urine RBC 1 (0-5) /hpf Urine WBC 3 (0-5) /hpf Ur Squamous Epith Cells 28 H (0-4) /hpf Urine Mucus Occasional H (None) /hpf Urine Yeast (Budding) Occasional H (None) /hpf Urine HCG, Qual Not Detected (Not Detectd) Heterophile Antibody (Negative) Influenza Type A (PCR) Not Detected (Not Detectd) Influenza Type B (PCR) Not Detected (Not Detectd) RSV (PCR) Not Detected (Not Detectd) SARS-CoV-2 (PCR) Not Detected (Not Detectd) Group A Strep (PCR) (Not Detectd) 04/13/23 Range/Units 14:09 WBC (3.8-10.6) k/uL RBC (3.80-5.40) m/uL Hgb (11.4-16.0) gm/dL Hct (34.0-46.0) % MCV (80.0-100.0) fL MCH (25.0-35.0) pg MCHC (31.0-37.0) g/dL RDW (11.5-15.5) % Plt Count (150-450) k/uL MPV Sodium (137-145) mmol/L Potassium (3.5-5.1) mmol/L Chloride (98-107) mmol/L Carbon Dioxide (22-30) mmol/L Anion Gap mmol/L BUN (7-17) mg/dL Creatinine (0.52-1.04) mg/dL Est GFR (CKD-EPI)AfAm (>60 ml/min/1.73 sqM) Est GFR (CKD-EPI)NonAf (>60 ml/min/1.73 sqM) Glucose (74-99) mg/dL Calcium (8.4-10.2) mg/dL Total Bilirubin (0.2-1.3) mg/dL AST (14-36) U/L ALT (4-34) U/L Alkaline Phosphatase (38-126) U/L Total Protein (6.3-8.2) g/dL Albumin (3.5-5.0) g/dL TSH (0.465-4.680) mIU/L Urine Color Urine Appearance (Clear) Urine pH (5.0-8.0) Ur Specific [place] (1.001-1.035) Urine Protein (Negative) Urine Glucose (UA) (Negative) Urine Ketones (Negative) Urine Blood (Negative) Urine Nitrite (Negative) Urine Bilirubin (Negative) Urine Urobilinogen (<2.0) mg/dL Ur Leukocyte Esterase (Negative) Urine RBC (0-5) /hpf Urine WBC (0-5) /hpf Ur Squamous Epith Cells (0-4) /hpf Urine Mucus (None) /hpf Urine Yeast (Budding) (None) /hpf Urine HCG, Qual (Not Detectd) Heterophile Antibody Negative (Negative) Influenza Type A (PCR) (Not Detectd) Influenza Type B (PCR) (Not Detectd) RSV (PCR) (Not Detectd) SARS-CoV-2 (PCR) (Not Detectd) Group A Strep (PCR) (Not Detectd) Disposition <Michelle Garcia - Last Filed: 04/13/23 12:12> Is patient prescribed a controlled substance at d/c from ED?: No Time of Disposition: 15:06 <Jessica Johnson - Last Filed: 04/13/23 16:40> Clinical Impression: Submandibular lymphadenopathy, Muscle spasm Disposition: HOME SELF-CARE Instructions (If sedation given, give patient instructions): Lymphadenopathy (ED) Additional Instructions: Return to the emergency department with any new, worsening, or concerning symptoms. Take the antibiotic as prescribed for 7 days. You can try taking the muscle relaxant as 1-2 tablets up to 3-4 times daily if you develop the muscle spasm sensations again. Follow up with your primary care provider in 1-2 days. Prescriptions: Amoxicillin 875 mg PO Q12HR 7 Days #14 tablet methocarbamoL [Robaxin-750] 1,500 mg PO TID PRN #30 tab PRN Reason: Pain Referrals: Nonstaff,Physician [Primary Care Provider] - 1-2 days
[2023-04-13 12:53] LABS: HCT 40.5 % (34.0-46.0); HGB 13.9 gm/dL (11.4-16.0); MCHC 34.3 g/dL (31.0-37.0); MCV 93.3 fL (80.0-100.0); Mean Platelet Volume 7.7; Platelet Count 272 k/uL (150-450); RBC 4.34 m/uL (3.80-5.40); RDW 12.5 % (11.5-15.5)
[2023-04-13 13:12] LABS: ALT 30 U/L (4-34); African American GFR (CKD) >90 (>60 ml/min/1.73 sqM); Albumin 4.8 g/dL (3.5-5.0); Anion Gap 13 mmol/L; Blood Urea Nitrogen 17 mg/dL (7-17); Calcium 9.4 mg/dL (8.4-10.2); Carbon Dioxide 23 mmol/L (22-30); Chloride 103 mmol/L (98-107); Glucose 107 mg/dL (74-99); Non-African American GFR(CKD) >90 (>60 ml/min/1.73 sqM); Sodium 139 mmol/L (137-145); Total Bilirubin 1.9 mg/dL (0.2-1.3); Total Protein 8.4 g/dL (6.3-8.2)
[2023-04-13 13:18] LABS: AST 49 U/L (14-36); Alkaline Phosphatase 44 U/L (38-126); Potassium 4.7 mmol/L (3.5-5.1)
[2023-04-13] MEDS ORDERED: KETOROLAC 15 MG/ML 1 ML VIAL IVP STA (13:29)
[2023-04-13 13:44] LABS: Appearance,Urine Cloudy (Clear); Bilirubin,Urine Negative (Negative); Blood,Urine Negative (Negative); Budding Yeast,Urine Occasional /hpf; Color,Urine Yellow; Glucose,Urine (UA) Negative (Negative); Ketones,Urine Negative (Negative); Leukocyte Esterase,Urine Small (Negative); Mucus,Urine Occasional /hpf; Nitrite,Urine Negative (Negative); PH, Urine 6.5 (5.0-8.0); Protein,Urine Trace (Negative); RBC,Urine 1 /hpf (0-5); Specific Gravity,Urine 1.025 (1.001-1.035); Squamous Epithelial Cell,Urine 28 /hpf (0-4); WBC,Urine 3 /hpf (0-5)
--- NOTE | 2023-04-13 13:57 | US ---
EXAMINATION TYPE: US thyroid st tissue head/neck DATE OF EXAM: 04/13/2023 COMPARISON: NONE CLINICAL INDICATION: Female, 22 years old with history of Mass underneath chin; Palpable lump under c hin since last night. No recent illness. There is a 1.4 x 1.3 x 1.5cm lymph node located at area of palp in the left submandibular region. IMPRESSION: 1. Prominent node at the palpable abnormality left submandibular region
[2023-04-13 15:53] VITALS: BP 108/88; PULSE 75; RESP 18; TEMP 97.8
== END 2023-04-13 15:49 | disposition home or self-care (01) ==
LOC: EC 11:39
DX: M62.838 Other muscle spasm (principal); R59.9 Enlarged lymph nodes, unspecified; Z86.59 Personal history of other mental and behavioral disorders; Z20.822 Contact with and (suspected) exposure to COVID-19
CPT/HCPCS: 36415; 87651; 80053; 84443; 85027; 86308; 81001; 81025; 87636; 76536; 99284; 96374; J1885